=== PATIENT | female | born 1995 | race Caucasian/White ===

== ENCOUNTER 2018-02-22 12:14 | Inpatient (IN) ==
[2018-02-22 12:35] VITALS: BMI 28.7
[2018-02-22 12:52] LABS: BILIRUBIN,URINE NEGATIVE (NEGATIVE); BLOOD/HEMOGLOBIN,URINE NEGATIVE (NEGATIVE); GLUCOSE, URINE NEGATIVE (NEGATIVE); KETONES,URINE 3+ (NEGATIVE); LEUKOCYTE ESTERASE ,URINE 1+ (NEGATIVE); NITRITES,URINE NEGATIVE (NEGATIVE); PROTEIN,URINE 1+ (NEGATIVE); UROBILINOGEN,URINE NORMAL (NORMAL)
[2018-02-22] MEDS ORDERED: D5 1/2 NS 1000 ML 1,000 ML IV ONE (13:37)
[2018-02-22] MEDS ORDERED: PITOCIN ONE (13:37)
[2018-02-22] MEDS ORDERED: D5LR 1L W PITOCIN 10 UNITS/L 10 UNITS/1,000 ML BAG IV ONE (13:37)
[2018-02-22 13:38] LABS: APPEARANCE,URINE SLIGHTLY HAZY (CLEAR); COLOR,URINE YELLOW (YELLOW)
[2018-02-22] MEDS ORDERED: LR 1000 ML IV 1,000 ML IV ONE ×3 (13:38→20:44)
[2018-02-22 13:40] LABS: BACTERIA,URINE NEGATIVE /HPF (NEGATIVE); RBC,URINE NONE SEEN /HPF (NONE SEEN); SQUAMOUS EPITHELIAL CELL,UR RARE /HPF (NEGATIVE)
[2018-02-22] MEDS ORDERED: DILAUDID INJ IVP PRN (13:55)
[2018-02-22] MEDS ORDERED: PHENERGAN INJ 25 MG IV PRN ×2 (13:55→22:20)
[2018-02-22] MEDS ORDERED: NUBAIN INJ 200 MG VIAL MULTIDOSE IVP PRN (13:55)
[2018-02-22] MEDS ORDERED: REGLAN INJ 10 MG VIAL IVP PRN (13:55)
[2018-02-22] MEDS ORDERED: PITOCIN IVP ONE (13:55)
[2018-02-22] MEDS ORDERED: D5LR 1L W PITOCIN 10 UNITS/L 10 UNITS/1,000 ML BAG IV PRN (13:55)
[2018-02-22] MEDS ORDERED: D5 1/2 NS 1000 ML 1,000 ML IV SCH (14:00)
[2018-02-22 14:52] LABS: BASOPHILS % (AUTO) 0.4 % (0.2-1.0); EOSINOPHILS % (AUTO) 0.3 % (0.9-2.9); HEMATOCRIT 36.2 % (36.0-47.0); HEMOGLOBIN 12.9 g/dL (12.0-16.0); LYMPHOCYTES # (AUTO) 1.9 X10^3/uL (1.3-2.9); LYMPHOCYTES % (AUTO) 24.5 % (21.0-51.0); MEAN CORPUSCULAR HEMOGLOBIN 34.2 pg (27.0-34.0); MEAN CORPUSCULAR HGB CONC 35.6 g/dL (33.0-35.0); MEAN CORPUSCULAR VOLUME 96.3 fL (80.0-100.0); MEAN PLATELET VOLUME 8.9 fL (7.4-11.0); MONOCYTES # (AUTO) 0.5 x10^3/uL (0.3-0.8); MONOCYTES % (AUTO) 6.9 % (0.0-13.0); NEUTROPHILS # (AUTO) 5.2 x10^3/uL (2.2-4.8); NEUTROPHILS % (AUTO) 67.9 % (42.0-75.0); PLATELET COUNT 197 X10^3/uL (150.0-450.0); RED BLOOD COUNT 3.76 X10^6/uL (3.5-5.4); RED CELL DISTRIBUTION WIDTH 13.5 % (11.6-16.5); WHITE BLOOD COUNT 7.6 X10^3/uL (3.6-10.0)
[2018-02-22 14:54] LABS: BLOOD UREA NITROGEN 6 mg/dL (7-18); CALCIUM 8.8 mg/dL (8.5-10.1); CHLORIDE 104 mmol/L (98-107); CREATININE 0.59 mg/dL (0.55-1.02); SODIUM 138 mmol/L (136-145); eGFR NON BLACK RACES > 60 (>60)
--- NOTE | 2018-02-22 15:18 | DR.OB ---
OB Quick Note - Assessment/Plan Assessment/Plan: L&D 02/22/18 at 1:45pm S-No complaint except CTX. O-Afebrile,VSS [id number] with good LTV, +accel, no decel. CTX=q 3 min., mod. by palpation CVX=3cm/50%/0/VTX AROM with clear fluid. IUPC and FSE placed. A-IUP at 38 6/7 weeks in active labor P-Begin pitocin augmentation F/U labs Anticipate
--- NOTE | 2018-02-22 16:28 | DR.OB ---
OB Quick Note - Assessment/Plan Assessment/Plan: L&D 02/22/18 at 4:20pm Pitocin=8mu/min. S-No complaint except CTX. O-Afebrile,VSS [id number] with good LTV, +accel, no decel. CTX=q 1 1/2 min., about 35-55mmHg CVX=3-4cm/75%/0/VTX A-IUP at 38 6/7 weeks in labor P-Cont. pitocin Anticipate
[2018-02-22] MEDS ORDERED: FENTANYL INJ 100 mcg ONE (17:00)
[2018-02-22] MEDS ORDERED: XYLOCAINE 1 % (PLAIN) ONE (17:00)
[2018-02-22] MEDS ORDERED: NAROPIN EPIDURAL 0.2% + FENTANYL 90MCG 60 ML EPI ONE (17:01)
[2018-02-22] MEDS ORDERED: ADRENALINE CHL INJ ONE (17:01)
[2018-02-22] MEDS ORDERED: FENTANYL INJ 100 mcg EPI ONE (17:10)
[2018-02-22] MEDS ORDERED: NAROPIN EPIDURAL 0.2% 60 ML with FENTANYL INJ 100 mcg 90 MCG IVP SCH ×2 (18:00)
[2018-02-22] MEDS ORDERED: D5 1/2 NS 1L W PITOCIN 20 UNITS/L 20 UNITS/1,000 ML BAG IV ONE (18:56)
--- NOTE | 2018-02-22 22:20 | DR.OB ---
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 Head delivered over midline episiotomy. Nose and mouth bulb suctioned. No nuchal cord. Body delivered over midline episiotomy. Cord clamped x 2 and cut. Infant handed to attendant. Cord sent for gases. Placenta delivered spontaneously / intact / 3 vessel cord. No CVX tears noted. A second degree midline episiotomy repaired with 0-vicryl in usual fashion. Viable female infant, VTX/OA, wt=7'2" and 9/9, stable to NBN. Mother stable to RR. [id number].
[2018-02-22] MEDS: D5 1/2 NS 1000 ML 1,000 ML with PITOCIN 20 UNITS IV SCH ×2 (23:00)
[2018-02-22] MEDS ORDERED: MILK OF MAGNESIA PO PRN (23:01)
[2018-02-22] MEDS ORDERED: DERMOPLAST SPRAY TOP PRN (23:01)
[2018-02-22] MEDS ORDERED: ADACEL or BOOSTRIX TDaP VACCINE IM ONE (23:01)
[2018-02-22] MEDS ORDERED: AMBIEN PO PRN (23:01)
[2018-02-22] MEDS ORDERED: BENADRYL INJ 50 MG VIAL IV ONE (23:52)
[2018-02-23 05:49] LABS: HEMOGLOBIN 11.3 g/dL (12.0-16.0)
[2018-02-23] MEDS: D5 1/2 NS 1000 ML 1,000 ML with PITOCIN 20 UNITS IV SCH ×4 (07:55→15:19)
[2018-02-23] MEDS: ZANTAC PO SCH ×2 (08:19→21:05)
[2018-02-23] MEDS: PRENATAL PLUS PO SCH (08:19)
[2018-02-23] MEDS ORDERED: ADACEL or BOOSTRIX TDaP VACCINE IM ONE (13:47)
[2018-02-23] MEDS: MOTRIN TAB 800 MG PO PRN (15:19)
[2018-02-24] MEDS: MOTRIN TAB 800 MG PO PRN (00:22)
[2018-02-24] MEDS: PRENATAL PLUS PO SCH (08:05)
[2018-02-24] MEDS: ZANTAC PO SCH (08:06)
[2018-02-24 13:16] VITALS: BP 111/70
== END 2018-02-24 13:45 | disposition home or self-care (01) | DRG 807 ==
LOC: ER 12:20 → LD 13:35 → MED/SURG 23:03
PROVIDERS: ADMIT Specialist; ATTEND Specialist
DX: Z23 Encounter for immunization; O98.52 Other viral diseases complicating childbirth; O70.1 Second degree perineal laceration during delivery; Z3A.38 38 weeks gestation of pregnancy; Z37.0 Single live birth
CPT/HCPCS: 36415; 59409; 80048; 80307; 81001; 85014; 85018; 85025; 86592; 86850; 86900; 86901; 90715; 99284; A4216; A4222; S0197; G0434; J0171; J1200; J2590; J3010; J7120; S5010

== ENCOUNTER 2022-06-02 06:31 | Inpatient (IN) ==
[2022-06-02] MEDS ORDERED: BETADINE SOLN ONE ×2 (06:54→15:31)
[2022-06-02] MEDS ORDERED: PITOCIN ONE (06:54)
[2022-06-02] MEDS ORDERED: D5 1/2 NS 1,000 ML 1,000 ML IV ONE (06:54)
[2022-06-02] MEDS ORDERED: D5 1/2 NS 1,000 mL + PITOCIN 20 UNITS/L IV 20 UNITS/1,000 ML BAG IV ONE (06:55)
[2022-06-02] MEDS ORDERED: D5 LR + PITOCIN 10 UNITS/L 10 UNITS/1,000 ML BAG IV ONE (06:55)
--- NOTE | 2022-06-02 07:22 | DR.OB ---
OB Quick Note - Assessment/Plan Assessment/Plan: L&D 06/02/22 at 7:10am S-No complaint. O-Afebrile,VSS [id number] with good LTV, +accel, no decel. CTX=none CVX=3-4cm/50%/-1/VTX AROM with clear fluid. IUPC and FSE placed. A-IUP at 39 2/7 weeks for induction P-Begin pitocin induction Anticipate
[2022-06-02] MEDS ORDERED: STADOL INJ IVP PRN (08:03)
[2022-06-02] MEDS ORDERED: MORPHINE SULFATE INJ 2 MG INJ IVP PRN (08:03)
[2022-06-02] MEDS ORDERED: D5 LR + PITOCIN 10 UNITS/L 10 UNITS/1,000 ML BAG IV PRN (08:03)
[2022-06-02] MEDS ORDERED: REGLAN INJ 10 MG VIAL IVP PRN (08:03)
[2022-06-02] MEDS ORDERED: PITOCIN IVP ONE (08:03)
[2022-06-02] MEDS ORDERED: NUBAIN INJ 20 MG AMP IVP PRN (08:03)
[2022-06-02] MEDS ORDERED: PHENERGAN INJ 25 MG IM PRN ×2 (08:03→14:09)
[2022-06-02] MEDS ORDERED: D5 1/2 NS 1,000 ML 1,000 ML IV SCH (08:03)
[2022-06-02] MEDS ORDERED: NAROPIN EPIDURAL 0.2% 100 ML ONE (08:55)
[2022-06-02] MEDS ORDERED: FENTANYL VIAL INJ 100 mcg ONE (08:55)
[2022-06-02] MEDS ORDERED: LR 1,000 ML IV 1,000 ML IV ONE (08:55)
[2022-06-02] MEDS ORDERED: ZOFRAN INJ 4 MG VIAL ONE ×2 (09:04→12:28)
[2022-06-02] MEDS ORDERED: EPHEDRINE SULFATE INJ ONE (09:09)
--- NOTE | 2022-06-02 12:07 | DR.OB ---
OB Quick Note - Assessment/Plan Assessment/Plan: L&D 06/02/22 at 11:55am Pitocin=12mu/min. S-No complaint. s/p epidural. O-Afebrile,VSS [id number] with good LTV, +accel, no decel. CTX=q 1 1/2 min., about 45-55mmHg CVX=8cm/75%/0 A-IUP at 39 2/7 weeks for induction P-Cont. pitocin induction Anticipate
[2022-06-02] MEDS: D5 1/2 NS 1,000 ML 1,000 ML with PITOCIN 20 UNITS IV SCH ×4 (14:32→23:33)
[2022-06-02] MEDS ORDERED: MILK OF MAGNESIA PO PRN (14:46)
[2022-06-02] MEDS ORDERED: AMBIEN PO PRN (14:46)
[2022-06-02] MEDS ORDERED: ADACEL or BOOSTRIX TDaP VACCINE IM ONE (14:46)
[2022-06-02] MEDS ORDERED: DERMOPLAST PAIN RELIEF SPRAY TOP PRN (14:46)
--- NOTE | 2022-06-02 16:04 | DR.OB ---
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 Head delivered over intact perineum. Nose and mouth bulb suctioned. Nuchal cord x 1 reduced. Body delivered over intact perineum. Cord clamped x 2 and cut. Infant handed to attendant. Cord sent for gases. Placenta delivered spontaneously / intact / 3 vessel cord. No CVX tears. A second degree midline tear noted and repaired with 0-vicryl in usual fashion. Viable female delivered by SVE, VTX/OA, wt=7'15" and 8/9, stable to NBN. Mother stable to RR. [id number].
[2022-06-02] MEDS: FERROUS GLUCONATE PO SCH (16:22)
[2022-06-02] MEDS: MOTRIN TAB 800 MG PO PRN (16:23)
[2022-06-03] MEDS: MOTRIN TAB 800 MG PO PRN ×2 (04:44→13:28)
[2022-06-03 05:08] LABS: HEMATOCRIT 24.6 % (36.0-47.0); HEMOGLOBIN 7.9 g/dL (12.0-16.0)
[2022-06-03] MEDS: D5 1/2 NS 1,000 ML 1,000 ML with PITOCIN 20 UNITS IV SCH ×2 (06:02)
[2022-06-03] MEDS: FERROUS GLUCONATE PO SCH (06:02)
[2022-06-03] MEDS ORDERED: PRENATAL PLUS PO SCH (09:00)
[2022-06-03 12:16] VITALS: BP 102/65
== END 2022-06-03 16:50 | disposition home or self-care (01) | DRG 807 ==
LOC: LD 06:31 → MED/SURG 14:58
PROVIDERS: ADMIT Specialist; ATTEND Specialist
DX: D50.8 Other iron deficiency anemias; Z37.0 Single live birth; O99.013 Anemia complicating pregnancy, third trimester; O70.1 Second degree perineal laceration during delivery; Z01.818 Encounter for other preprocedural examination; Z3A.39 39 weeks gestation of pregnancy